=== PATIENT | male | born 1970 | race Caucasian/White ===

== ENCOUNTER 2019-10-17 22:25 | Emergency (ER) | payer SELFPAY ==
[~2019-10-17] VITALS: Ht 165.1 cm; Wt 65.9 kg
[2019-10-17] MEDS ORDERED: DOXYCYCLINE HY100 M2 PO (22:36)
[2019-10-17] MEDS ORDERED: BUTALB-APAP-CA1 EACH PO (22:37)
[2019-10-17 22:38] VITALS: Ht 165.1 cm; Wt 65.9 kg
[2019-10-17 23:10] LABS: BASOPHILS 0.4 % (0-2); EOSINOPHILS 0 % (0-7); HEMATOCRIT 44.6 % (42.0-54.0); HEMOGLOBIN 15.6 g/dL (13.5-17.5); IMMATURE GRANULOCYTES 0.9 % (0-5); LYMPHOCYTES 13.1 % (15-50); MCH 33.3 pg (26.0-34.0); MCV 95.3 fL (80.0-100.0); MONOCYTES 6.4 % (2-11); NEUTROPHILS 79.2 % (40-80); PLATELET COUNT 112 10x3/uL (130-400); RBC 4.68 10x6/uL (4.20-6.10); RDW 13.2 % (11.5-14.5); WBC 6.9 10x3/uL (4.8-10.8)
[2019-10-17 23:19] LABS: CALC OSMOLALITY 270 mosm/kg (275-300); CALCIUM 8.1 mg/dL (8.5-10.1); CARBON DIOXIDE 26.9 mmol/L (21.0-32.0); CHLORIDE - SERUM 99 mmol/L (98-107); CREATININE - SERUM 1.7 mg/dL (0.6-1.3); GLUCOSE 103 mg/dL (74-106); POTASSIUM - SERUM 3.3 mmol/L (3.5-5.1); SODIUM 135 mmol/L (136-145); UREA NITROGEN 16 mg/dL (7-18); eGFR NON AFRICAN AMERICAN 45 mL/min (90-120)
[2019-10-17 23:27] LABS: ALBUMIN 3.1 g/dL (3.4-5.0); ALKALINE PHOSPHATASE 433 U/L (30-120); ALT (SGPT) 204 U/L (10-68); BILIRUBIN - TOTAL 0.89 mg/dL (0.2-1.3); C-REACTIVE PROTEIN 26.3 mg/dL (0.0-0.9); PROTEIN - SERUM 6.9 g/dL (6.4-8.2); TROPONIN-I < 0.017 ng/mL (0.000-0.060)
[2019-10-18 00:18] LABS: BILIRUBIN NEGATIVE (NEGATIVE); GLUCOSE NEGATIVE (NEGATIVE); KETONE NEGATIVE (NEGATIVE); NITRITE NEGATIVE (NEGATIVE); UROBILINOGEN NORMAL (NORMAL)
[2019-10-18 00:20] LABS: BACTERIA FEW /hpf (NEGATIVE); EPITHELIAL CELLS 0-5 /hpf (0-5); RED CELLS - URINE 0-5 /hpf (0-5); WHITE CELLS - URINE 0-5 /hpf (NEGATIVE)
[2019-10-18 00:33] LABS: UDS - AMPHET NEGATIVE QUAL (NEGATIVE); UDS - BARB POSITIVE QUAL (NEGATIVE); UDS - BENZO NEGATIVE QUAL (NEGATIVE); UDS - COCAINE NEGATIVE QUAL (NEGATIVE); UDS - OPIATE NEGATIVE QUAL (NEGATIVE); UDS - PCP NEGATIVE QUAL (NEGATIVE); UDS - THC NEGATIVE QUAL (NEGATIVE)
[2019-10-18 02:15] VITALS: BP 121/72
[2019-10-18] MEDS ORDERED: TORADOL10 MG PO (02:17)
[2019-10-18] MEDS ORDERED: ZOFRAN ODT4 MG/UDTAB PO (02:17)
[2019-10-18] MEDS ORDERED: HYDROCODON-ACE1 EAC2 PO (08:45)
[2019-10-18] MEDS ORDERED: PHENERGAN25 M1 PO (08:47)
[2019-10-21 14:09] LABS: EHRLICHIA CHAFF IGG Negative (Neg:<1:64); EHRLICHIA CHAFF IGM Negative (Neg:<1:20); HGE IGG TITER Negative (Neg:<1:64); HGE IGM TITER Negative (Neg:<1:20)
== END 2019-10-18 02:15 | disposition home or self-care (01) ==
LOC: D.ER 22:25
PROVIDERS: Family Medicine
DX: R51 Headache (principal); R79.89 Other specified abnormal findings of blood chemistry; N28.9 Disorder of kidney and ureter, unspecified

== ENCOUNTER 2019-10-18 07:20 | Emergency (ER) | payer SELFPAY ==
[~2019-10-18 07:20] MED LIST: BUTALB-APAP-CA1 EACH PO; DOXYCYCLINE HY100 M2 PO; TORADOL10 MG PO; ZOFRAN ODT4 MG/UDTAB PO
[2019-10-18 07:26] VITALS: BP 92/62; Ht 165.1 cm
[2019-10-18] MEDS ORDERED: HYDROCODON-ACE1 EAC2 PO (08:45)
[2019-10-18] MEDS ORDERED: PHENERGAN25 M1 PO (08:47)
== END 2019-10-18 08:57 | disposition home or self-care (01) ==
LOC: D.ER 07:20
DX: G43.909 Migraine, unspecified, not intractable, without status migrainosus (principal); A93.8 Other specified arthropod-borne viral fevers